=== PATIENT | female | born 2000 | race Caucasian/White ===

== ENCOUNTER 2021-10-10 15:43 | Emergency (ER) | payer OTHER ==
[~2021-10-10] VITALS: Ht 154.9 cm; Wt 54.9 kg
[2021-10-10 15:59] VITALS: BP 123/76
--- NOTE | 2021-10-10 16:03 | NUR ---
PT TO WAIT IN LOBBY.
[2021-10-10] MEDS ORDERED: LIDOCAINE MPF 1% 10 MG/ML VIAL INJ ONE (16:05)
--- NOTE | 2021-10-10 16:23 | NUR ---
PT TAKEN TO G[facility] Concepcion
--- NOTE | 2021-10-10 16:36 | NUR ---
PT TAKEN TO ER BED 12.
--- NOTE | 2021-10-10 16:44 | NUR ---
PT TAKEN TO XR VIA W/C.
--- NOTE | 2021-10-10 16:51 | NUR ---
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 PT STATES DOG IS UPD ON VACCINES. NOTED PARTIAL THICKNESS LAC TO DIGIT WITH NO ACTIVE BLEEDING AT THIS TIME. PT ABLE TO MOVE FINGERS WITH SOME PAIN 6/10 DESCRIBES ACHING RADIATES TO LEFT HAND. DENIES PMH NKA
[2021-10-10] MEDS ORDERED: BACITRACIN OINT 500 UNITS/GM PKT TP ONE (17:20)
[2021-10-10] MEDS ORDERED: IBUP-1842 PO ×2 (17:22→18:41)
[2021-10-10] MEDS ORDERED: AMOX-1230 PO ×2 (17:22→18:41)
[2021-10-10] MEDS ORDERED: BACI1PAC6 TP ×2 (17:22→18:41)
[2021-10-10 17:44] VITALS: BP 129/79
--- NOTE | 2021-10-10 17:44 | NUR ---
Patient discharged with v/s stable. Written and verbal after care instructions given FOR ANIMAL BITE and explained. Patient alert, oriented and verbalized understanding of instructions. Ambulatory with steady gait. All questions addressed prior to discharge. ID band removed. Patient advised to follow up with PMD. Rx of AUGMENTIN AND BACITRACIN, AND MOTRIN given. Patient educated on indication of medication including possible reaction and side effects. Opportunity to ask questions provided and answered.
--- NOTE | 2021-10-10 17:46 | NUR ---
WOUND DRESSING APPLIED TO FINGER WITH NON ADHERENT AND GAUZE.
== END 2021-10-10 17:44 | disposition home or self-care (01) ==
LOC: MED 15:43
DX: S61.215A Laceration without foreign body of left ring finger without damage to nail, initial encounter (principal); S61.255A Open bite of left ring finger without damage to nail, initial encounter; Z79.899 Other long term (current) drug therapy; W54.0XXA Bitten by dog, initial encounter; Y93.89 Activity, other specified; Y92.89 Other specified places as the place of occurrence of the external cause; Y99.8 Other external cause status
CPT/HCPCS: 12001; 73140; 90471; 90715; 99283; J2001

== ENCOUNTER 2021-10-12 17:35 | Emergency (ER) | payer OTHER ==
[~2021-10-12] VITALS: Ht 154.9 cm; Wt 54.4 kg
[~2021-10-12 17:35] MED LIST: AMOX-1230 PO; BACI1PAC6 TP; IBUP-1842 PO
[2021-10-12 17:47] VITALS: BP 114/47
--- NOTE | 2021-10-12 17:55 | NUR ---
BIB SELF FOR LEFT RING FINGER WOUND CHECK. SUTURE PLACEED ON 2 DAYS AGO.
--- NOTE | 2021-10-12 17:59 | NUR ---
Patient being evaluated by AISLINN MONET at [facility] [place].
[2021-10-12] MEDS ORDERED: BACITRACIN OINT 500 UNITS/GM PKT TP ONE ×2 (18:27→18:30)
[2021-10-12 18:40] VITALS: BP 114/47
--- NOTE | 2021-10-12 18:40 | NUR ---
Patient discharged with v/s stable. Written and verbal after care instructions given and explained. Patient verbalized understanding. Ambulatory with steady gait. All questions addressed prior to discharge. Advised to follow up with PMD.
--- NOTE | 2021-10-12 18:41 | NUR ---
PER [facility] PT LEFT VASHTI WAS DRESSED WITH BACITRACIN AND WAS PLINTED. ALL PMCS WAS ASSSED BEFORE AND AFTER ALL WNL. [facility] ASSESSED SPLINT AND APPROVED.
== END 2021-10-12 18:40 | disposition home or self-care (01) ==
LOC: MED 17:35
DX: S61.221D Laceration with foreign body of left index finger without damage to nail, subsequent encounter (principal); Z48.01 Encounter for change or removal of surgical wound dressing; Z79.2 Long term (current) use of antibiotics; Z79.1 Long term (current) use of non-steroidal anti-inflammatories (NSAID); X58.XXXD Exposure to other specified factors, subsequent encounter
CPT/HCPCS: 99283

== ENCOUNTER 2021-10-16 10:01 | Emergency (ER) | payer OTHER ==
[~2021-10-16] VITALS: Ht 154.9 cm; Wt 56.7 kg
[2021-10-16 10:11] VITALS: BP 123/48
[2021-10-16 10:15] VITALS: BP 123/48
--- NOTE | 2021-10-16 10:26 | NUR ---
21yo f presents to ED for removal of suture on left hand, 4th digit. suturing done 6 days ago, with [address] pt reports minimal swelling and numbness, denies discharge and pain. pt takes ibuprofen for pain and is on day 6 of unrecalled antibiotic. ermd made aware of pt status. pmh: none meds: none nka
[2021-10-16] MEDS ORDERED: IBUP-2213 PO (11:44)
[2021-10-16] MEDS: BACITRACIN OINT 500 UNITS/GM PKT TP ONE ×2 (11:58)
--- NOTE | 2021-10-16 12:01 | NUR ---
Patient discharged with v/s stable. Written and verbal after care instructions ABOUT WOUND CARE AND SUTURE REMOVAL CARE given and explained. Patient alert, oriented and verbalized understanding of instructions. Ambulatory with steady gait. All questions addressed prior to discharge. ID band removed. Patient advised to follow up with PMD. Rx of IBUPROFEN given. Patient educated on indication of medication including possible reaction and side effects. Opportunity to ask questions provided and answered.
== END 2021-10-16 12:01 | disposition home or self-care (01) ==
LOC: MED 10:01
DX: S61.214D Laceration without foreign body of right ring finger without damage to nail, subsequent encounter (principal); Z79.899 Other long term (current) drug therapy; X58.XXXD Exposure to other specified factors, subsequent encounter
CPT/HCPCS: 99282

== ENCOUNTER 2021-10-20 19:21 | Emergency (ER) | payer OTHER ==
[~2021-10-20] VITALS: Ht 154.9 cm; Wt 55.8 kg
[~2021-10-20 19:21] MED LIST changes: +IBUP-2213 PO
[2021-10-20 19:49] VITALS: BP 115/62
[2021-10-20] MEDS ORDERED: CEPH-588 PO (20:28)
[2021-10-20 20:33] VITALS: BP 115/62
== END 2021-10-20 20:33 | disposition home or self-care (01) ==
LOC: MED 19:21
DX: L03.012 Cellulitis of left finger (principal)
CPT/HCPCS: 99283